=== PATIENT | male | born 1955 | race Caucasian/White ===

== ENCOUNTER → 2021-08-25 | Outpatient (CLI) | payer OTHER ==
[~2021-08-25] MED LIST: ADVIL100 M2 PO; ASPIRIN325 PO; C-10001000 M1 PO; CALCIUM 600 MG1 EAC6 PO; CALCIUM MAGNES1 EAC2 PO; CALMAG THINS T1 EACH PO; GLUCOSAMINE CH1 EAC2 PO; GLUCOSAMINE CH1 EAC7 PO; HYDROCODON-ACE1 EAC7 PO; IBUPROFEN200 M1 PO; IBUPROFEN200 M2 PO; LISINOPRIL20 MG PO; MSM1000 MG PO; MULTIVITAMINS PO; NORVASC5 MG PO; OCUVITE TABLET1 EAC1 PO; ULTRAM 50MG TAB50 MG PO; VITAMIN D1000 UNI1 PO; VITAMINC500 PO; XARELTO10 M1 PO; ZINC50 M2 PO
[2021-08-25 13:03] LABS: URINE BILIRUBIN NEGATIVE (Negative); URINE BLOOD NEGATIVE (Negative); URINE CLARITY CLEAR; URINE COLOR YELLOW; URINE GLUCOSE-RANDOM* NEGATIVE (Negative); URINE KETONES NEGATIVE (Negative); URINE LEUKOCYTES-REFLEX NEGATIVE (Negative); URINE NITRITE-REFLEX NEGATIVE (Negative); URINE PROTEIN (DIPSTICK) NEGATIVE (Negative); URINE UROBILINOGEN 0.2 E.U./dl (0.2-1.0)
[2021-08-25 13:04] LABS: HEMATOCRIT 41.9 % (42.0-52.0); HEMOGLOBIN 14.3 gm/dL (14.0-18.0); MCH 30.3 pg (26.0-34.0); MCHC 34.1 g/dL (28.0-37.0); MCV 88.8 fL (80.0-100.0); RBC 4.72 mil/uL (4.50-6.00); RDW 13.4 % (10.5-14.5); WBC 6.5 thou/uL (4.0-11.0)
[2021-08-25 13:18] LABS: ALBUMIN 4.2 g/dL (3.4-5.0); CALCIUM 9.1 mg/dL (8.5-10.1); CREATININE 1.1 mg/dL (0.7-1.3); POTASSIUM 3.9 mmol/L (3.5-5.1)
[2021-08-25 13:20] LABS: INR 1.11
--- NOTE | 2021-08-25 16:25 | EKG ---
[address] [id number] ELECTROCARDIOGRAM REPORT Name: ARLET MORENO Room #: [facility] [id number] Admission: 08/25/21 Attend Phys: Galindo Jeffers MD Discharge: Date of : 53 Report #: [id number] [facility] Test Date: 2021-08-25 Test Time: 12:56:00 Pat Name: ARLET MORENO Department: Room: Gender: Packaging Technician: BROOKE MILLER : 1955 Requested By: Galindo Jeffers Order Number: [id number] MD: Elton Ca Measurements Intervals [place] Rate: 60 P: 45 VT: 145 QRS: -18 QRSD: 107 T: 30 QT: 420 QTc: 420 Interpretive Statements Sinus rhythm Borderline left axis deviation Compared to ECG 05/22/2013 10:34:14 No significant change was found Electronically Signed On 08-25-2021 16:25:05 [employer] by Elton Ca [email or web address] <ELECTRONICALLY SIGNED> By: Elton Ca MD, [facility] 08/25/21 1625 1256 1256 Elton Ca MD, FACC /EPI
== END ==
LOC: PAC 08-07 09:19
PROVIDERS: ATTEND Orthopaedic Surgery
DX: Z01.818 Encounter for other preprocedural examination (principal); M17.12 Unilateral primary osteoarthritis, left knee; I10 Essential (primary) hypertension